=== PATIENT | female | born 1975 | race Hispanic/Latino ===

== ENCOUNTER 2018-01-04 18:30 | Emergency (ER) | payer OTHER ==
[2018-01-04 19:05] LABS: BASOPHILS % (AUTO) 1.3 % (0.0-5.0); EOSINOPHILS % (AUTO) 1.6 % (0.0-8.0); HEMATOCRIT 35.1 % (36-48); LYMPHOCYTES % (AUTO) 47.3 % (21.0-51.0); MEAN CORPUSCULAR HGB CONC 33.8 g/dL (32.0-36.0); MEAN CORPUSCULAR VOLUME 82.9 fL (79-99); MONOCYTES % (AUTO) 9.9 % (3.0-13.0); NEUTROPHILS % (AUTO) 39.9 % (40.0-77.0); PLATELET COUNT (AUTO) 345 K/uL (130-400); RED BLOOD CELL COUNT(AUTO) 4.23 MIL/uL (4.00-5.50); RED CELL DISTRIBUTION WIDTH 14.8 % (11.0-15.5); WHITE BLOOD COUNT (AUTO) 8.7 K/uL (4.8-10.8)
[2018-01-04] MEDS ORDERED: MORPHINE SULFATE 2 MG/ML 1ML SYG ONE (19:51)
[2018-01-04 20:10] LABS: APPEARANCE,URINE Clear (CLEAR); BILIRUBIN,URINE Negative (NEGATIVE); COLOR,URINE Yellow (YELLOW); GLUCOSE, URINE (UA) Negative (NEGATIVE); KETONES,URINE Negative (NEGATIVE); LEUKOCYTE ESTERASE ,URINE Negative (NEGATIVE); NITRATE,URINE Negative (NEGATIVE); OCCULT BLOOD,URINE Negative (NEGATIVE); PH,URINE 5.5 (5.0-8.0); PROTEIN,URINE Negative (NEGATIVE); UROBILINOGEN,URINE 0.2 mg/dL (0.2-1.0)
[2018-01-04 20:18] LABS: CREATININE 0.8 mg/dL (0.5-1.5); POTASSIUM 3.8 mmol/L (3.5-5.1)
[2018-01-04 20:21] LABS: HCG,QUAL RESULT NEGATIVE (NEGATIVE)
[2018-01-04 20:23] LABS: ALBUMIN 3.7 g/dL (3.5-5.0); BILIRUBIN,TOTAL 0.3 mg/dL (0.2-1.0); TOTAL PROTEIN, SERUM 7.9 g/dL (6.0-8.3)
[2018-01-04] MEDS ORDERED: ONDANSETRON HCL 4 MG/2 ML VIAL ONE (20:50)
[2018-01-04] MEDS ORDERED: ORPHENADRINE CITRATE 30 MG/ML ML ONE (23:54)
[2018-01-04] MEDS ORDERED: KETOROLAC TROMETHAMINE 30MG/ML ONE (23:54)
== END 2018-01-05 01:01 | disposition home or self-care (01) ==
LOC: EDH 18:30
DX: M54.42 Lumbago with sciatica, left side (principal); R10.32 Left lower quadrant pain; R14.0 Abdominal distension (gaseous); E07.9 Disorder of thyroid, unspecified
CPT/HCPCS: 36415; 74176; 76830; 80053; 81003; 81025; 85025; 87210; 87486; 87797; 96374; 96375; 99285; J1885; J2360; J2405

== ENCOUNTER 2018-04-15 15:01 | Emergency (ER) | payer OTHER ==
[2018-04-15] MEDS ORDERED: DEXAMETHASONE SOD PHOSPHATE 10MG/ML 1ML VIAL ONE (15:15)
[2018-04-15] MEDS ORDERED: SODIUM CHLORIDE 0.9% 1000ML 1,000 ML IV ONE (15:15)
[2018-04-15] MEDS ORDERED: DiphenhydrAMINE HCL 50 MG/ML VIAL ONE (15:15)
[2018-04-15] MEDS ORDERED: PROCHLORPERAZINE EDISYLATE 10 MG/2 ML VIAL ONE (15:16)
== END 2018-04-15 16:34 | disposition home or self-care (01) ==
LOC: EDH 15:01
DX: G43.909 Migraine, unspecified, not intractable, without status migrainosus (principal); H57.12 Ocular pain, left eye; E07.9 Disorder of thyroid, unspecified; Z98.51 Tubal ligation status
CPT/HCPCS: 96374; 96375; 99283; J0780; J1100; J1200; J7030